=== PATIENT | female | born 1945 | race African-American/Black ===

== ENCOUNTER → 2017-05-08 | Outpatient (CLI) | payer MEDICARE, BC ==
[~2017-05-08] MED LIST: ASA; FOLI-43 PO; GLIM4TAB2 PO; PRAV10TA35 PO; Vitamin E; benazepril; ferrous sulfate; lyrica; metformin; omega
== END | disposition home or self-care (01) ==
LOC: LAB 15:13
PROVIDERS: ATTEND Radiology Diagnostic Radiology
DX: R91.1 Solitary pulmonary nodule (principal)
CPT/HCPCS: 71010

== ENCOUNTER 2018-07-20 10:45 | Emergency (ER) | payer MEDICARE, BC ==
[~2018-07-20] VITALS: Ht 162.6 cm; Wt 68.0 kg
[2018-07-20] MEDS ORDERED: SODIUM CHLORIDE 0.9% 1,000 ML IV ONE (11:15)
[2018-07-20] MEDS ORDERED: KETOROLAC 30MG/ML VIAL IV STA (11:15)
[2018-07-20 15:46] LABS: BASOPHILS % 0.2 % (0.0-2.0); HEMATOCRIT. 33.4 % (36.0-48.0); HEMOGLOBIN. 11.3 g/dL (12.0-16.0); LYMPHOCYTES % 8.5 % (20.0-50.0); MEAN CORPUSCULAR HEMOGLOBIN 30.3 pg (28.0-32.0); MEAN CORPUSCULAR VOLUME 89.9 fL (81.0-99.0); MEAN PLATELET VOLUME 6.6 fl (7.4-10.4); MONOCYTES % 7.8 % (2.0-8.0); NEUTROPHILS % 83.5 % (40.0-76.0); PLATELET 374 x1000/uL (130-400); RED BLOOD CELL COUNT 3.72 mill/uL (4.2-5.4)
[2018-07-20 15:51] LABS: INR 1.1; PROTHROMBIN TIME 11.4 sec (9.1-11.1)
[2018-07-20 15:53] LABS: CHLORIDE 102 mEq/L (98-107)
[2018-07-20] MEDS ORDERED: POTASSIUM CHLORIDE 20MEQ TABLET SR PO ONE (16:15)
[2018-07-20 17:13] VITALS: BP 146/89
== END 2018-07-20 17:15 | disposition home or self-care (01) ==
LOC: ER 10:59
DX: M25.551 Pain in right hip (principal); R60.0 Localized edema; W06.XXXA Fall from bed, initial encounter; E87.6 Hypokalemia; C80.1 Malignant (primary) neoplasm, unspecified; Y93.89 Activity, other specified; Y92.89 Other specified places as the place of occurrence of the external cause; Z88.0 Allergy status to penicillin; Z79.899 Other long term (current) drug therapy; Z92.21 Personal history of antineoplastic chemotherapy; Z92.3 Personal history of irradiation
CPT/HCPCS: 36415; 71045; 73521; 80053; 83880; 85025; 85610; 85730; 86850; 86900; 86901; 93005; 93970; 96374; 99285; J1885; J7030